=== PATIENT | female | born 1985 | race Two or more races ===

== ENCOUNTER 2019-05-15 23:15 | Emergency (ER) | payer SELFPAY ==
[~2019-05-15] VITALS: Ht 149.9 cm; Wt 42.2 kg
[~2019-05-15 23:15] MED LIST: ASPI-605 PO; AZIT250T13 PO; LISI-607 PO; MYCO360T PO; PRED5SOL PO; PROP20TA7 PO; TACR1CAP PO
[2019-05-15] MEDS ORDERED: OLME20TA23 PO (23:31)
--- NOTE | 2019-05-15 23:40 | NUR ---
Dr. Henderson at bedside for MSE.
--- NOTE | 2019-05-16 00:17 | NUR ---
Patient discharged to home in stable conditon. Written and verbal after care instructions given. Patient verbalizes understanding of instructions. Pt ambulated out of ER with steady gait, no acute signs of distress, VSS, all belongings taken.
[2019-05-16 00:21] VITALS: BP 177/127
== END 2019-05-16 00:22 | disposition home or self-care (01) ==
LOC: ER 23:17
DX: S01.01XA Laceration without foreign body of scalp, initial encounter (principal); S50.11XA Contusion of right forearm, initial encounter; Z79.2 Long term (current) use of antibiotics; Z79.899 Other long term (current) drug therapy; W54.0XXA Bitten by dog, initial encounter; Y93.89 Activity, other specified; Y92.89 Other specified places as the place of occurrence of the external cause; Y99.8 Other external cause status
CPT/HCPCS: A4663